=== PATIENT | male | born 1955 | race African-American/Black ===

== ENCOUNTER 2016-09-25 02:48 | Emergency (ER) | payer MEDICAID ==
[~2016-09-25] VITALS: Ht 172.7 cm; Wt 75.0 kg
[2016-09-25] MEDS ORDERED: SODIUM CHLORIDE 0.9% 1,000 ML IV ONE (03:24)
[2016-09-25] MEDS ORDERED: KETOROLAC 30MG/ML VIAL IV ONE (03:30)
[2016-09-25 03:33] LABS: CLARITY URINE CLEAR (CLEAR); COLOR URINE YELLOW (YELLOW); GLUCOSE URINE NEGATIVE (NEGATIVE); KETONES URINE TRACE (NEGATIVE); LEUKOCYTE ESTERASE URINE NEGATIVE (NEGATIVE); NITRITE URINE NEGATIVE (NEGATIVE); OCCULT BLOOD URINE TRACE (NEGATIVE); PROTEIN URINE NEGATIVE (NEGATIVE); SPECIFIC GRAVITY URINE 1.011 (1.005-1.030)
[2016-09-25 03:42] LABS: BASOPHILS % 0.8 % (0.0-2.0); EOSINOPHILS % 0.2 % (0.0-5.0); HEMATOCRIT. 42.7 % (42.0-52.0); HEMOGLOBIN. 14.6 g/dL (14.0-18.0); LYMPHOCYTES % 13.7 % (20.0-50.0); MEAN CORPUSCULAR HEMOGLOBIN 31.2 pg (28.0-32.0); MEAN CORPUSCULAR VOLUME 91.2 fL (80.0-94.0); MEAN PLATELET VOLUME 9.6 fl (7.4-10.4); MONOCYTES % 9.2 % (2.0-8.0); NEUTROPHILS % 76.1 % (40.0-76.0); PLATELET 119 x1000/uL (130-400); RED BLOOD CELL COUNT 4.68 mill/uL (4.7-6.1); RED CELL DISTRIBUTION WIDTH 14.4 % (11.6-14.6)
[2016-09-25 03:45] LABS: CHLORIDE 107 mEq/L (98-107)
[2016-09-25 03:46] LABS: PROTHROMBIN TIME 10.8 sec
[2016-09-25 03:53] LABS: CARBON DIOXIDE 26 mEq/L (21-32)
[2016-09-25] MEDS ORDERED: ONDANSETRON HCL 4MG/2ML VIAL IV ONE (04:15)
[2016-09-25] MEDS ORDERED: MORPHINE SULFATE 4 MG/ML CPJ (NOT FOR IM USE) IV ONE (04:15)
[2016-09-25 09:11] VITALS: BP 122/78
[2016-09-25] MEDS ORDERED: DIATR MEGLU/DIATRIZOATE SOLN 120ML ONE (13:09)
== END 2016-09-25 09:13 | disposition home or self-care (01) ==
LOC: ER 02:48
DX: J98.11 Atelectasis (principal); R10.9 Unspecified abdominal pain; F17.200 Nicotine dependence, unspecified, uncomplicated
CPT/HCPCS: 36415; 71010; 74176; 80053; 81001; 83690; 85025; 85610; 96374; 96375; 99285; J1885; J2270; J2405; J7030; Z7610; Q9963